=== PATIENT | female | born 1970 | race Two or more races ===

== ENCOUNTER → 2020-01-27 | Outpatient (CLI) | payer OTHER ==
--- NOTE | 2020-01-27 14:45 | Diagnostic Imaging Report ---
EXAM: ULTRASOUND US ABD Complete CLINICAL HISTORY: Reason For Exam: ABD PAIN. COMPARISON: None TECHNIQUE: Ultrasound examination of the abdomen includes grayscale images, and color and spectral doppler analysis. FINDINGS: The liver is echogenic and fatty. There are questionable areas of isoechoic nodularity along the anterior margin of the right and left lobes. Spleen is enlarged spanning at least 14.1 cm. The gallbladder is without sludge or stone. Common bile duct measures 3 mm. The pancreas is unremarkable to the extent visualized. There are cortical calcifications and cysts of the right kidney noted. No hydronephrosis seen bilaterally. Aorta and cava are within normal limits. The appendix is not distinctly seen in the right lower quadrant. IMPRESSION: ECHOGENIC FATTY LIVER. QUESTIONABLE ISOECHOIC NODULES ALONG THE ANTERIOR MARGIN OF THE LIVER. CONSIDER CORRELATION WITH TRIPLE PHASE CONTRAST CT. RIGHT RENAL CORTICAL CALCIFICATIONS AND CYSTS. NO OBSTRUCTIVE UROPATHY. SPLENOMEGALY. APPENDIX NOT VISUALIZED.
== END | disposition home or self-care (01) ==
LOC: RAD 12:27
DX: R10.9 Unspecified abdominal pain (principal); K76.0 Fatty (change of) liver, not elsewhere classified; N28.1 Cyst of kidney, acquired; R16.1 Splenomegaly, not elsewhere classified
CPT/HCPCS: 76700